=== PATIENT | male | born 1940 | race Caucasian/White ===

== ENCOUNTER 2020-05-22 05:04 | Emergency (ER) | payer OTHER ==
[~2020-05-22] VITALS: Ht 170.2 cm; Wt 59.0 kg
[~2020-05-22 05:04] MED LIST: LISI40TA13; ZOLP10TA2
--- NOTE | 2020-05-22 05:07 | NUR ---
Placed in room 5 . Placed on radiation monitor, blood pressure machine and pulse oximeter. To gown for exam. Side rails up. Report given to Souleymane JONES.
[2020-05-22 05:11] VITALS: BP_SYST 150
[2020-05-22] MEDS ORDERED: MORPHINE 2 MG/ML INJ. SYRINGE IVP ONE (05:15)
[2020-05-22] MEDS ORDERED: ONDANSETRON HCL 4 MG/2 ML VIAL IVP ONE (05:15)
[2020-05-22] MEDS ORDERED: NACL 0.9% 1,000 ML IV ONE (05:15)
--- NOTE | 2020-05-22 05:30 | NUR ---
# 20 gauge angiocath placed to right forearm. Use of asceptic technique. Opsite placed over site. Blood return noted. Blood for lab drawn from site. Flushed with 10 cc of normal saline. No evidence of infiltration noted. Patient tolerated well.
--- NOTE | 2020-05-22 05:30 | NUR ---
patient medicated as ordered. Will observe for any adverse reaction. Bed to low position sr up, continue to monitor level of comfort.
[2020-05-22] MEDS ORDERED: HYDR12.55 PO (05:34)
[2020-05-22] MEDS ORDERED: NOR10 PO (05:34)
[2020-05-22] MEDS ORDERED: METO25TA3 PO (05:34)
--- NOTE | 2020-05-22 05:34 | NUR ---
Medication reconciliation completed with information provided by pt . Any prior medication reconciliation on file was reviewed and corrected.
--- NOTE | 2020-05-22 05:40 | NUR ---
Pt taken to CT awake via wheelchair at this time.
[2020-05-22 05:41] LABS: BASOPHILS % (AUTO) 0.4 % (0.0-2.0); EOSINOPHILS # (AUTO) 0.3 K/uL (0.0-0.4); EOSINOPHILS % (AUTO) 3.7 % (0.0-4.0); HEMATOCRIT 43.8 % (36-54); HEMOGLOBIN 14.6 g/dL (14.0-18.0); LYMPHOCYTES # (AUTO) 1.5 K/uL (1.0-5.5); LYMPHOCYTES % (AUTO) 19.3 % (20.5-51.5); MEAN CORPUSCULAR HEMOGLOBIN 32 pg (27-31); MEAN CORPUSCULAR HGB CONC 33 % (32-36); MEAN CORPUSCULAR VOLUME 96 fL (79.0-98.0); MONOCYTES # (AUTO) 0.4 K/uL (0.0-1.0); MONOCYTES % (AUTO) 5.6 % (1.7-9.3); NEUTROPHILS # (AUTO) 5.4 K/uL (1.8-7.7); PLATELET COUNT (AUTO) 221 K/uL (130-430); RED BLOOD CELL COUNT(AUTO) 4.55 MIL/uL (4.2-6.2); RED CELL DISTRIBUTION WIDTH 12.4 % (9.0-15.0); WHITE BLOOD COUNT (AUTO) 7.6 K/uL (4.8-10.8)
[2020-05-22 05:54] LABS: ANION GAP 11 (5-15); CHLORIDE 106 mmol/L (98-107); CREATININE 1.13 mg/dL (0.55-1.30); GLUCOSE 160 mg/dL (70-99); POTASSIUM 3.1 mmol/L (3.5-5.1); SODIUM SERUM 144 mmol/L (136-145); UREA NITROGEN, BLOOD 19 mg/dL (8-21)
[2020-05-22 05:59] LABS: ALANINE AMINOTRANSFERASE 20 U/L (12-78); ALBUMIN 3.6 g/dL (3.4-4.8); ASPARTATE AMINOTRANSFERASE 18 U/L (10-37); LIPASE 171 U/L (73-393); TOTAL BILIRUBIN 0.5 mg/dL (0.0-1.0)
--- NOTE | 2020-05-22 06:02 | NUR ---
patient returned from ct scan.
[2020-05-22] MEDS ORDERED: DOCU-144 PO (06:58)
[2020-05-22] MEDS ORDERED: POTASSIUM CHLORIDE 20 MEQ TAB.PRT.SR PO ONE (07:00)
--- NOTE | 2020-05-22 07:00 | NUR ---
Assumed care of patient, report received from ROBERT Chavez. Pt currently in the bathroom, no distress ntoed.
[2020-05-22 07:28] VITALS: BP_SYST 150
--- NOTE | 2020-05-22 07:30 | NUR ---
Patient given written and verbal discharge instructions and verbalizes understanding. ER MD discussed with patient the results and treatment provided. Patient in stable condition. ID arm band removed. IV catheter removed intact and dressing applied, no active bleeding. Rx of Colace given. Patient educated on pain management and to follow up with PMD. Pain Scale 0. Opportunity for questions provided and answered. Medication side effect fact sheet provided.
== END 2020-05-22 07:30 | disposition home or self-care (01) ==
LOC: SED 05:04
DX: K59.00 Constipation, unspecified (principal); K57.92 Diverticulitis of intestine, part unspecified, without perforation or abscess without bleeding; E87.6 Hypokalemia; I10 Essential (primary) hypertension; J44.9 Chronic obstructive pulmonary disease, unspecified; Z79.899 Other long term (current) drug therapy
CPT/HCPCS: 36415; 74176; 76376; 80053; 83605; 83690; 85025; 93005; 96361; 96374; 96375; 99285; J2270; J2405; J7030

== ENCOUNTER 2021-07-29 22:35 | Emergency (ER) | payer OTHER ==
[~2021-07-29] VITALS: Ht 170.2 cm; Wt 81.6 kg
[~2021-07-29 22:35] MED LIST changes: +DOCU-144 PO; +HYDR12.55 PO; +METO25TA3 PO; +NOR10 PO; -ZOLP10TA2
[2021-07-29 22:45] VITALS: BP_SYST 157
[2021-07-29] MEDS ORDERED: ONDANSETRON HCL 4 MG/2 ML VIAL IVP ONE (23:15)
[2021-07-29] MEDS ORDERED: NACL 0.9% 1,000 ML IV ONE (23:15)
[2021-07-29 23:56] LABS: BASOPHILS % (AUTO) 0.4 % (0.0-2.0); EOSINOPHILS # (AUTO) 0.1 K/uL (0.0-0.4); EOSINOPHILS % (AUTO) 1.3 % (0.0-4.0); HEMATOCRIT 42.4 % (36-54); HEMOGLOBIN 14.6 g/dL (14.0-18.0); LYMPHOCYTES # (AUTO) 1.4 K/uL (1.0-5.5); LYMPHOCYTES % (AUTO) 11.8 % (20.5-51.5); MEAN CORPUSCULAR HEMOGLOBIN 32 pg (27-31); MEAN CORPUSCULAR HGB CONC 34 % (32-36); MEAN CORPUSCULAR VOLUME 93 fL (79.0-98.0); MONOCYTES # (AUTO) 0.5 K/uL (0.0-1.0); MONOCYTES % (AUTO) 4.2 % (1.7-9.3); NEUTROPHILS # (AUTO) 9.5 K/uL (1.8-7.7); NEUTROPHILS % (AUTO) 82.3 % (40.0-70.0); PLATELET COUNT (AUTO) 231 K/uL (130-430); RED BLOOD CELL COUNT(AUTO) 4.56 MIL/uL (4.2-6.2); RED CELL DISTRIBUTION WIDTH 13.7 % (9.0-15.0); WHITE BLOOD COUNT (AUTO) 11.5 K/uL (4.8-10.8)
[2021-07-29] MEDS ORDERED: ASPIRIN 81 MG TAB.CHEW ONE (23:56)
[2021-07-30] MEDS ORDERED: HEPARIN 25,000 UNITS/D5W 250ML 250 ML IV ONE
[2021-07-30] MEDS ORDERED: *HEPARIN PER PHARMACY XX ONE
[2021-07-30] MEDS ORDERED: SODIUM CHLORIDE IV ONE (00:10)
[2021-07-30] MEDS ORDERED: [UNRECOGNIZED DRUG - OTHER] IV ONE (00:10)
[2021-07-30] MEDS ORDERED: HEPARIN SODIUM,PORCINE 5,000 UNITS/ML VIAL IVP ONE (00:15)
[2021-07-30 00:29] LABS: INR 1.1 (0.80-1.20); PROTHROMBIN TIME 11.1 SECS (9.5-12.5)
[2021-07-30 00:38] VITALS: BP_SYST 157
[2021-07-30 01:12] LABS: ALANINE AMINOTRANSFERASE 25 U/L (12-78); ALBUMIN 3.8 g/dL (3.4-4.8); ANION GAP 9 (5-15); ASPARTATE AMINOTRANSFERASE 20 U/L (10-37); CALCIUM 9.2 mg/dL (8.4-11.0); CHLORIDE 104 mmol/L (98-107); CREATININE 1.14 mg/dL (0.55-1.30); GLUCOSE 190 mg/dL (70-99); PHOSPHORUS 3.8 mg/dL (2.7-4.5); POTASSIUM 3.4 mmol/L (3.5-5.1); SODIUM SERUM 139 mmol/L (136-145); TOTAL BILIRUBIN 0.5 mg/dL (0.0-1.0); UREA NITROGEN, BLOOD 17 mg/dL (8-21)
[2021-07-30] MEDS ORDERED: ASPIRIN 81 MG TAB.CHEW PO ONE ×2 (01:30)
== END 2021-07-30 00:40 | disposition short-term general hospital (02) ==
LOC: SED 22:35
DX: I21.19 ST elevation (STEMI) myocardial infarction involving other coronary artery of inferior wall (principal); I10 Essential (primary) hypertension; Z20.822 Contact with and (suspected) exposure to COVID-19
CPT/HCPCS: 36415; 71045; 80053; 83605; 83735; 84100; 84484; 85025; 85610; 85730; 87040; 87426; 93005; 96361; 96374; 96375; 99285; J1644 ×2; J2405; J7030